=== PATIENT | male | born 1950 | race Caucasian/White ===

== ENCOUNTER → 2017-04-13 14:08 | Outpatient (CLI) | payer MEDICARE, OTHER ==
[2016-07-22 09:28] VITALS: BMI 29.5
[~2017-04-13 14:08] MED LIST: BAYER CHEWABLE81 MG PO; CARDURA2 MG PO; GEMFIBROZIL600 MG PO; NORVASC5 MG PO; PLAVIX75 MG PO; PRAVACHOL80 MG PO
== END | disposition home or self-care (01) ==
LOC: D.CT 14:08
DX: R91.1 Solitary pulmonary nodule (principal)

== ENCOUNTER → 2018-12-22 08:41 | Outpatient (CLI) | payer MEDICARE, OTHER ==
[2016-07-22 09:28] VITALS: BMI 29.5
[2018-12-22 09:35] LABS: APPEARANCE HAZY (CLEAR); BILIRUBIN NEGATIVE (NEGATIVE); COLOR YELLOW (YELLOW); GLUCOSE NEGATIVE (NEGATIVE); KETONE NEGATIVE (NEGATIVE); NITRITE POSITIVE (NEGATIVE); PROTEIN TRACE mg/dL (NEGATIVE); SPECIFIC GRAVITY 1.015 (1.005-1.020); UROBILINOGEN NORMAL (NORMAL)
[2018-12-22 09:36] LABS: BACTERIA MANY /hpf (NONE SEEN); EPITHELIAL CELLS OCC /hpf (0-5); MUCUS <1+ /lpf (NONE SEEN); RED CELLS - URINE OCC /hpf (0-5); WHITE CELLS - URINE 0-5 /hpf (0-5)
== END | disposition home or self-care (01) ==
LOC: D.LAB 12-21 10:29
PROVIDERS: Student in an Organized Health Care Education/Training Program
DX: N39.0 Urinary tract infection, site not specified (principal)